=== PATIENT | male | born 1960 | race Caucasian/White ===

== ENCOUNTER 2024-04-14 12:41 | Outpatient (CLI) | payer MEDICAID, SELFPAY ==
--- NOTE | 2024-04-14 12:51 | XR_ITS ---
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 FINDINGS: The L1-L4 bone mineral density measures 1.372 g/cm2. This corresponds to a T score score of 1.3 and Z score of 1.1. Left femoral neck bone mineral density measures 1.104 g/cm2. This corresponds to a T score of 0.0 and Z score of 0.1. Right femoral neck bone mineral density measures 1.088 g/cm2. This corresponds to a T score -0.1of an d Z score of 0.0. Mean femoral neck bone mineral density measures 1.096 g/cm2. This corresponds to a T score of 0.0 and Z score of 0.1. XR/XR DEXA axial skeleton* [id number] IMPRESSION: Normal bone mineralization. Patient's FRAX calculated 10 year probability for major osteoporotic fracture i s 11.0% and osteoporotic hip fracture is 1.9%.
== END 2024-04-14 12:42 | disposition home or self-care (01) ==
LOC: RAD 12:45
PROVIDERS: Family Provider Family Medicine; PCP Family Medicine; Visit Provider Family Medicine
DX: M85.88 Other specified disorders of bone density and structure, other site (principal)
CPT/HCPCS: 77080

== ENCOUNTER 2024-12-03 09:40 | Outpatient (CLI) | payer MEDICAID, SELFPAY ==
--- NOTE | 2024-12-03 09:47 | US_ITS ---
WS: [id number] RIGHT UPPER QUADRANT ULTRASOUND HISTORY: CHRONIC HEPETITIS C COMPARISON: 05/11/2013 Liver: 13.6 cm in length. Low normal size liver. Surface of the liver is nodular and irregular which can be seen with cirrhosis. No mass or intrahepatic duct dilatation. Coarse echotexture. Portal Vein: Normal hepatopetal flow with monophasic waveform. Gallbladder: Normally distended gallbladder with no stones or wall thickening. CBD: 0.4 cm Pancreas: Nonvisualization of the pancreas. Right kidney: 10.2 cm in length. Normal size and echogenicity. No hydronephrosis or mass. Aorta and IVC: Unremarkable abdominal aorta and IVC. No ascites. US/US liver [id number] IMPRESSION: 1. Normal size liver with surface changes consistent with cirrhosis. No hepatic mass. 2. Negative gallbladder.
== END 2024-12-03 09:41 | disposition home or self-care (01) ==
LOC: RAD 09:41
PROVIDERS: Family Provider Family Medicine; PCP Family Medicine; Visit Provider Family Medicine
DX: B18.2 Chronic viral hepatitis C (principal); R93.2 Abnormal findings on diagnostic imaging of liver and biliary tract
CPT/HCPCS: 76705